=== PATIENT | female | born 1960 | race Caucasian/White ===

== ENCOUNTER 2018-02-15 18:01 | Emergency (ER) | payer BC, OTHER ==
[~2018-02-15] VITALS: Ht 162.6 cm; Wt 76.5 kg
[~2018-02-15 18:01] MED LIST: ALPR0.25 PO; CIPR-255 PO; DULO60CA44 PO; OXYC7.5T78 PO; SUCR1TAB29 PO
[2018-02-15 18:04] VITALS: TEMP 36.8
[2018-02-15] MEDS ORDERED: ASCA500 PO (19:23)
[2018-02-15] MEDS ORDERED: MELA1TAB18 PO (19:23)
[2018-02-15] MEDS ORDERED: MULT-506 PO (19:23)
[2018-02-15] MEDS ORDERED: CHOL100010 PO (19:23)
[2018-02-15] MEDS ORDERED: CYM/30 PO (19:23)
[2018-02-15 19:40] VITALS: O2SAT 94; Ht 162.6 cm; Wt 76.5 kg
--- NOTE | 2018-02-15 19:48 | DIAGNOSTIC IMAGING REPORT ---
CHEST ONE VIEW PORTABLE CLINICAL HISTORY: EVALUATE WEAKNESS COMPARISON STUDY: No previous studies for comparison. FINDINGS: Lung volumes are normal. There is slight elevation of the right hemidiaphragm. There is no consolidation to suggest pneumonia. Pulmonary vascularity is normal. No pneumothorax or pleural effusion is noted. Cardiomediastinal silhouette is normal. IMPRESSION: No acute cardiopulmonary findings. Electronically signed by: Giancarlo Coffman M.D. 02/15/2018 7:47 PM Dictated Date/Time: 02/15/2018 7:46 PM
[2018-02-15 20:00] LABS: BASO % 0.3 %; BASO ABS # 0.03 K/uL (0-0.2); EOS % 1.7 %; EOS ABS # 0.18 K/uL (0-0.5); HEMATOCRIT 43.7 % (37-47); HEMOGLOBIN 15.6 g/dL (12.0-16.0); IG# 0.04 K/uL (0.00-0.02); LYMPH % 32.9 %; LYMPH ABS # 3.55 K/uL (1.2-3.4); MEAN CELL VOLUME 86.2 fL (80-100); MEAN CORPUSCULAR HEMOGLOBIN 30.8 pg (25-34); MEAN CORPUSCULAR HGB CONC 35.7 g/dl (32-36); MEAN PLATELET VOLUME 9.7 fL (7.4-10.4); MONO % 7.1 %; MONO ABS # 0.77 K/uL (0.11-0.59); NEUT % 57.6 %; NEUT ABS # 6.21 K/uL (1.4-6.5); PLATELET COUNT 226 K/uL (130-400); RED CELL DISTRIBUTION WIDTH CV 12.7 % (11.5-14.5); WHITE BLOOD COUNT 10.78 K/uL (4.8-10.8)
[2018-02-15 20:11] LABS: ALBUMIN 3.8 gm/dl (3.4-5.0); ALT/SGPT 73 U/L (12-78); AST/SGOT 36 U/L (15-37); BLOOD UREA NITROGEN 19 mg/dl (7-18); CARBON DIOXIDE 29 mmol/L (21-32); CREATININE 0.88 mg/dl (0.60-1.20); GLUCOSE 91 mg/dl (70-99); POTASSIUM 3.7 mmol/L (3.5-5.1); SODIUM 139 mmol/L (136-145)
[2018-02-15 20:22] LABS: ALKALINE PHOSPHATASE 88 U/L (45-117); CKMB 0.6 ng/ml (0.5-3.6); TOTAL PROTEIN 7.8 gm/dl (6.4-8.2)
--- NOTE | 2018-02-15 21:15 | EMERGENCY ROOM VISIT NOTE ---
History Report prepared by Lu: Fuad Bey Under the Supervision of: Dr. Jesus Ferraro M.D. First contact with patient: 19:11 Chief Complaint: CARDIAC ASSESSMENT Stated Complaint: HEART PALPATIONS Nursing Triage Summary: Patient c/o heart palpatations and chest pain that feels like a pulled muscle for last 2-3 days. Patient also c/o left shoulder pain and headache. Patient reports increased stress and anxiety. History of Present Illness The patient is a 57 year old female who presents to the Emergency Room with complaints of intermittent general palpitations for three days. She reports it is fluttering when it comes and goes. She states that she felt more fluttering yesterday than today. She has had headaches for about a week. She notes shortness of breath. She states that she has been under undue stress all family related. She denies any chest pain. She denies any new leg swelling or recent travels. She notes neck pain. She feels lightheaded. She denies any history of cardiac history. Pt denies LOC, fevers, chills, diaphoresis, visual changes, nausea, vomiting, abdominal pain, back pain, melena, hematochezia, urinary symptoms, numbness, weakness, lymphadenopathy, rash, or other complaints. Source of History: patient Onset: three days Position: other (general) Quality: other (palpitations) Timing: intermittent Associated Symptoms: + headache, + neck pain, + SOB, No chest pain Note: Notes lightheadedness. Review of Systems See HPI for pertinent positives and negatives. A total of ten systems were reviewed and were otherwise negative. Past Medical & Surgical Medical Problems: (1) Kidney stone Surgical Problems: (1) H/O knee surgery (2) H/O: hysterectomy (3) History of appendectomy (4) History of cholecystectomy Family History Cancer Diabetes mellitus Heart disease Kidney disease Kidney stones Social History Smoking Status: Current Every Day Smoker Smokeless Tobacco Use: No Alcohol Use: none Drug Use: none Marital Status: single Housing Status: lives with family Occupation Status: employed Current/Historical Medications Scheduled Ascorbic Acid (Vitamin C), 500 MG PO DAILY Cholecalciferol (Vitamin D), 1 TAB PO DAILY Duloxetine HCl (Cymbalta), 30 MG PO DAILY Multivitamin (Multivitamin), 1 TAB PO DAILY Sucralfate (Carafate), 1 GM PO QID Scheduled PRN Alprazolam (Xanax), 0.25 MG PO HS PRN for Sleep Melatonin (Melatonin Cr), 5-10 MG PO HS PRN for Sleep Allergies Coded Allergies: Cephalexin (Verified Allergy, Mild, itchy, 02/15/18) info obtained from pre anesthesia questionnaire Physical Exam Vital Signs Date Time Temp Pulse Resp B/P (MAP) Pulse Ox O2 Delivery O2 Flow Rate FiO2 02/15/18 22:10 82 19 138/93 98 02/15/18 21:39 84 22 139/103 96 Room Air 02/15/18 20:29 90 18 155/95 96 Room Air 02/15/18 19:40 94 Room Air 02/15/18 19:40 94 Room Air 02/15/18 19:32 82 02/15/18 18:08 Room Air 02/15/18 18:04 36.8 108 18 161/108 94 Room Air Physical Exam GENERAL: Awake, alert, mildly anxious-appearing, in no distress HENT: Normocephalic, atraumatic. Oropharynx unremarkable. EYES: Normal conjunctiva. Sclera non-icteric. NECK: Supple. No nuchal rigidity. FROM. No masses. RESPIRATORY: Clear to auscultation. No wheezes. No rales. Normal respiratory effort. CARDIAC: Normal rate. Normal rhythm. No murmurs. No rubs. Extremities warm and well perfused. Pulses equal. No JVD. GI: Soft, non-distended. No tenderness to palpation. No rebound or guarding. No masses. RECTAL: Deferred. MUSCULOSKELETAL: Atraumatic. Chest examination reveals no tenderness. The back is symmetrical on inspection without obvious abnormality. There is no CVA tenderness to palpation. No joint edema. LOWER EXTREMITIES: Calves are equal size bilaterally and non-tender. No edema. No discoloration. NEURO: Normal sensorium. No sensory or motor deficits noted. SKIN: No rash or jaundice noted. Medical Decision & Procedures ER Provider Diagnostic Interpretation: Radiology results as stated below per my review and radiologist interpretation: CHEST ONE VIEW PORTABLE CLINICAL HISTORY: EVALUATE WEAKNESS COMPARISON STUDY: No previous studies for comparison. FINDINGS: Lung volumes are normal. There is slight elevation of the right hemidiaphragm. There is no consolidation to suggest pneumonia. Pulmonary vascularity is normal. No pneumothorax or pleural effusion is noted. Cardiomediastinal silhouette is normal. IMPRESSION: No acute cardiopulmonary findings. Electronically signed by: Giancarlo Coffman M.D. 02/15/2018 7:47 PM Dictated Date/Time: 02/15/2018 7:46 PM Laboratory Results 02/15/18 19:30 Red Blood Count 5.07, Mean Corpuscular Volume 86.2, Mean Corpuscular Hemoglobin 30.8, Mean Corpuscular Hemoglobin Concent 35.7, Mean Platelet Volume 9.7, Neutrophils (%) (Auto) 57.6, Lymphocytes (%) (Auto) 32.9, Monocytes (%) (Auto) 7.1, Eosinophils (%) (Auto) 1.7, Basophils (%) (Auto) 0.3, Neutrophils # (Auto) 6.21, Lymphocytes # (Auto) 3.55, Monocytes # (Auto) 0.77, Eosinophils # (Auto) 0.18, Basophils # (Auto) 0.03 02/15/18 19:30 Test 02/15/18 19:30 02/15/18 20:30 White Blood Count 10.78 K/uL (4.8-10.8) Red Blood Count 5.07 M/uL (4.2-5.4) Hemoglobin 15.6 g/dL (12.0-16.0) Hematocrit 43.7 % (37-47) Mean Corpuscular Volume 86.2 fL (80-100) Mean Corpuscular Hemoglobin 30.8 pg (25-34) Mean Corpuscular Hemoglobin Concent 35.7 g/dl (32-36) Platelet Count 226 K/uL (130-400) Mean Platelet Volume 9.7 fL (7.4-10.4) Neutrophils (%) (Auto) 57.6 % Lymphocytes (%) (Auto) 32.9 % Monocytes (%) (Auto) 7.1 % Eosinophils (%) (Auto) 1.7 % Basophils (%) (Auto) 0.3 % Neutrophils # (Auto) 6.21 K/uL (1.4-6.5) Lymphocytes # (Auto) 3.55 K/uL (1.2-3.4) Monocytes # (Auto) 0.77 K/uL (0.11-0.59) Eosinophils # (Auto) 0.18 K/uL (0-0.5) Basophils # (Auto) 0.03 K/uL (0-0.2) RDW Standard Deviation 40.0 fL (36.4-46.3) RDW Coefficient of Variation 12.7 % (11.5-14.5) Immature Granulocyte % (Auto) 0.4 % Immature Granulocyte # (Auto) 0.04 K/uL (0.00-0.02) Anion Gap 4.0 mmol/L (3-11) Est Creatinine Clear Calc Drug Dose 70.6 ml/min Estimated GFR () 84.5 Estimated GFR (Non- 72.9 BUN/Creatinine Ratio 21.7 (10-20) Calcium Level 9.0 mg/dl (8.5-10.1) Magnesium Level 2.5 mg/dl (1.8-2.4) Total Bilirubin 0.5 mg/dl (0.2-1) Direct Bilirubin < 0.1 mg/dl (0-0.2) Aspartate Amino Transf (AST/SGOT) 36 U/L (15-37) Alanine Aminotransferase (ALT/SGPT) 73 U/L (12-78) Alkaline Phosphatase 88 U/L (45-117) Total Creatine Kinase 98 U/L (26-192) Creatine Kinase MB 0.6 ng/ml (0.5-3.6) Creatine Kinase MB Ratio 0.6 (0-3.0) Troponin I < 0.015 ng/ml (0-0.045) Total Protein 7.8 gm/dl (6.4-8.2) Albumin 3.8 gm/dl (3.4-5.0) Thyroid Stimulating Hormone (TSH) 3.890 uIu/ml (0.300-4.500) Urine Color YELLOW Urine Appearance CLEAR (CLEAR) Urine pH 6.5 (4.5-7.5) Urine Specific [place] 1.020 (1.000-1.030) Urine Protein NEG (NEG) Urine Glucose (UA) NEG (NEG) Urine Ketones NEG (NEG) Urine Occult Blood NEG (NEG) Urine Nitrite NEG (NEG) Urine Bilirubin NEG (NEG) Urine Urobilinogen NEG (NEG) Urine Leukocyte Esterase NEG (NEG) Laboratory results reviewed by me Medications Administered Medications (Trade) Dose Ordered Sig/Faustino Route Start Time Stop Time Status Last Admin Dose Admin Ibuprofen (Advil Tab) 400 mg STK-MED ONCE .ROUTE 02/15/18 21:30 02/15/18 21:31 DC 02/15/18 21:36 400 MG ECG Per My Interpretation Indication: palpitations Rate (beats per minute): 100 Rhythm: sinus rhythm Findings: PVC (frequent), T-wave inversion (Anterior), other (prolonged QT) Comparison ECG Date: no prior available ED Course 1917: The patient was evaluated in room C3. A complete history and physical exam was performed. 2103: I reassessed the patient at this time. I updated the patient. 2129: Ordered Advil 400 mg PO 2137: I spoke with Dr. Samuels, instrument inspector. We discussed the patient's case. He would follow up with her as an outpatient. 2155: I reassessed the patient at this time. She is feeling better and resting comfortably. I discussed the results and treatment plan with the patient. I answered all pertaining questions that she had. She expressed understanding and verbalized agreement. The patient will be discharged home. Medical Decision Prior records/ancillary studies reviewed. Triage Nursing notes reviewed and agree them. Additional history obtained from the family. The patient's history was concerning for palpitations. Differential diagnosis: Etiologies such as electrolyte abnormality, cardiac dysrhythmia, thyroid dysfunction, pulmonary embolism, infection, gastrointestinal, as well as others were entertained. Physical examination: Benign as above. ER treatment provided: Cardiac monitoring. PVCs noted. Ibuprofen requested for headache On reassessment the patient felt better. Diagnostic interpretation by me: The electrocardiogram revealed T-wave inversions anteriorly. PVCs noted. There are no prior for comparisons. The patient is not actively having chest pain at this time. The labs revealed an unremarkable CBC and chemistry panel. Cardiac markers negative. Troponin negative. Imaging studies: Chest x-ray as above. Consultation: A consultation was placed with the [facility] instrument inspector, Dr. Samuels. The case was discussed. At this point the patient has no chest symptoms. She has ectopy noted on monitoring and ECG. She has negative diagnostic blood work. Clinically she looks well. He advised for her to contact the clinic tomorrow with the. The patient will be seen in follow-up. Likely she will require an echo as well as monitoring as an outpatient. This was referred to the patient and she agreed. Case management was also made aware and will follow up with the clinic tomorrow to assist her in her appointment. If she worsens in any way she will be back. By the evaluation outlined above other emergent etiologies such as those listed in the differential, as well as others, were deemed relatively unlikely. The patient was educated about the findings as listed above. All questions were answered and the patient was pleased with the treatment. Return instructions were outlined and the patient was discharged in stable condition. The patient was referred to cardiology for follow-up for a recheck of the current condition. Medication Reconcilliation Current Medication List: was personally reviewed by me Blood Pressure Screening Patient's blood pressure: Elevated blood pressure Blood pressure disposition: Referred to PCP Consults Time Called: 2109 Consulting Physician: Dr. Samuels, instrument inspector Returned Call: [address] Samuels, instrument inspector. We discussed the patient's case. He would follow up with her as an outpatient. Impression Primary Impression: Palpitations Scribe Attestation The scribe's documentation has been prepared under my direction and personally reviewed by me in its entirety. I confirm that the note above accurately reflects all work, treatment, procedures, and medical decision making performed by me. Departure Information Dispostion Home / Self-Care Referrals Maximilian Marr D.O. (PCP) Forms IMPORTANT VISIT INFORMATION Patient Instructions My [facility] Additional Instructions PALPITATIONS(RAPID OR SKIPPING HEARTBEAT) INSTRUCTIONS: Rest and drink plenty of fluids as tolerated. Continue current medications. Resume normal activities once your symptoms resolve. Eat a heart healthy, low fat, low cholesterol diet. Return to the ER immediately for passing out, chest pain, abdominal pain, vomiting, fevers, difficulty breathing, worsening of your condition, or as needed. Follow up with [facility] cardiology tomorrow for a recheck of your current condition. Call the clinic at [phone]. The number is listed below under Dr. Samuels. Tell the press secretary that you were in the ER and referred. He was aware of your situation.
[2018-02-15] MEDS ORDERED: IBUPROFEN 200 MG TAB ONE (21:30)
[2018-02-15 22:10] VITALS: BP 138/93; PULSE 82; O2SAT 98
== END 2018-02-15 22:25 | disposition home or self-care (01) ==
LOC: C.EDB 18:02 → C.EDC 22:25
DX: R00.2 Palpitations (principal); F17.210 Nicotine dependence, cigarettes, uncomplicated; Z82.49 Family history of ischemic heart disease and other diseases of the circulatory system; Z79.899 Other long term (current) drug therapy; Z88.1 Allergy status to other antibiotic agents